=== PATIENT | male | born 1965 | race Caucasian/White ===

== ENCOUNTER 2019-08-22 14:29 | Outpatient (CLI) | payer BC, OTHER, SELFPAY ==
--- NOTE | 2019-08-22 14:48 | ECHO_ITS ---
Patient Info Name: Basilio Hurtado Age: 54 years : 1965 Gender: Male Ht: 74 in Wt: 250 lbs BSA: 2.46 m2 HR: 75 bpm BP: 155 / 84 mmHg Technical Quality: Good Exam Date: 08/22/2019 2:57 PM Exam Location: [facility] Patient Status: Outpatient Admit Date: 08/22/2019 Staff Ordering Physician: Elizabeth Chand PAC Sinter Feeder: Saniya Mustafa RDCS Attending Provider: Elizabeth Chand PAC Referring Physician: Mannie VENTURA; Exam Type: CA echo doppler color flow Study Info Indications - cardiac arrhythmia Complete two-dimensional, color flow and Doppler transthoracic echocardiogram is performed. Summary 1. Left ventricular chamber dimension is normal. 2. Left ventricular systolic function is normal, estimated at 55-60%. 3. The left ventricular diastolic function is grade I diastolic dysfunction. 4. E/e' 14 is mildly elevated. 5. Left atrial chamber dimension is mildly enlarged. 6. Right atrial chamber dimension is mildly enlarged. 7. The mitral valve has mildly calcified annulus. 8. There is trace mitral valve regurgitation. 9. There is trace tricuspid valve regurgitation. 10. No pulmonary hypertension, estimated pulmonary arterial systolic pressure is 25 mmHg. Left Ventricle E/e' 14 is mildly elevated. Left ventricular chamber dimension is normal. Left ventricular systolic function is normal, estimated at 55-60%. The left ventricular diastolic function is grade I diastolic dysfunction. Right Ventricle Right ventricular chamber dimension is normal. Right ventricular systolic function is normal. Left Atria Left atrial chamber dimension is mildly enlarged. Right Atria Right atrial chamber dimension is mildly enlarged. Aortic Valve The aortic valve is trileaflet. There is no aortic valve stenosis. There is no aortic valve regurgitation. Pulmonic Valve There is no pulmonic regurgitation. Mitral Valve The mitral valve has mildly calcified annulus. There is no mitral valve stenosis. There is trace mitral valve regurgitation. Tricuspid Valve There is trace tricuspid valve regurgitation. No pulmonary hypertension, estimated pulmonary arterial systolic pressure is 25 mmHg. Pericardium/Pleural There is no pericardial effusion. Inferior Vena Cava Normal inferior vena cava with >50% collapse upon inspiration consistent with normal right atrial pressure, 5 mmHg. Aorta The aortic root size at the sinus of Valsalva is normal. Left Ventricular Outflow Tract Name Value Normal LVOT 2D LVOT Diameter 2.1 cm LVOT Doppler LVOT Peak Gradient 7 mmHg LVOT Mean Gradient 4 mmHg LVOT VTI 25 cm LVOT VTI/AV VTI Ratio 0.9 LVOT Stroke Volume 84 ml LVOT CO 20.8 l/min LVOT CI 8.4 l/min/m2 Pulmonic Valve Name Value Normal
== END 2019-08-22 14:30 | disposition home or self-care (01) ==
PROVIDERS: PCP Family Medicine; Visit Provider Physician Assistant Medical
DX: I49.9 Cardiac arrhythmia, unspecified (principal); I51.7 Cardiomegaly
CPT/HCPCS: 93306

== ENCOUNTER → 2020-05-12 08:50 | Outpatient (CLI) | payer BC, OTHER, SELFPAY ==
--- NOTE | ~2020-05-12 | XR_ITS ---
XR knee LT 2V 05/12/2020 09:16 Indication: Left knee pain Procedure: 2 views left knee Comparison: 11/01/2007 Findings: There is mild tricompartment osteoarthritis. Small effusion. No fracture or traumatic malal ignment. No foreign bodies. Impression: 1: Mild tricompartment osteoarthritis of the left knee. 2: Small left knee effusion. Reviewed, dictated and finalized at location B. 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 2: Small left knee effusion.
== END ==
PROVIDERS: PCP Family Medicine; Visit Provider Physician Assistant Medical
DX: M17.12 Unilateral primary osteoarthritis, left knee (principal); M25.462 Effusion, left knee
CPT/HCPCS: 73560

== ENCOUNTER → 2020-05-15 11:00 | Outpatient (CLI) | payer BC, OTHER, SELFPAY ==
--- NOTE | ~2020-05-15 | MR_ITS ---
EXAMINATION: MR knee LT wo con DATE: 05/15/2020 12:42 INDICATION: Generalized left knee pain TECHNIQUE: Magnetic resonance imaging (MRI) of the left knee was performed without intravenous contra st. Sequences included coronal PD-weighted FSE, coronal PD-weighted FS FSE, sagittal T2-weighted FSE , sagittal PD-weighted FS FSE and axial PD weighted fat saturated FSE. COMPARISON: Left knee radiographs dated 05/12/2020 FINDINGS: Medial compartment: Complex medial meniscal tear with a primary longitudinal horizontal tear plane at the posterior horn extending to contact the superior articular surface at the junction of the inner to mid thirds and wi th secondary likely parrot beak configuration tear along the inner third of the posterior horn. Deep chondral ulceration without degenerative subchondral changes at the anterior to central weightbearing medial femoral condyle. Partial thickness chondral fissuring at the central aspect of the medial tib ial plateau. Lateral compartment: Lateral meniscus is normal. Small region of partial-thickness chondral ulceration without degenerativ e subchondral changes at the anterior weightbearing lateral femoral condyle. Patellofemoral compartment: Deep chondral ulceration with underlying subarticular cystic change and edema at the patellar apical ridge, inferomedial aspect of the medial patellar facet and at the medial trochlea and inferior aspec t of the trochlear groove. Partial-thickness chondral fissuring involving up to 50% of the cartilage thickness at the lateral patellar facet and at the medial half of the lateral trochlea. Ligaments and tendons: Anterior and posterior cruciate ligaments are normal. Partial-thickness tear involving the anterior a spect of the proximal medial collateral ligament. This is likely chronic with secondary heterotopic o ssification at its medial epicondylar origin. The fibular collateral ligament is normal. All tendinop athy without discrete tear at the distal quadriceps and proximal patellar tendons. The visualized med ial and lateral hamstring tendons as well as the iliotibial band are normal. Fluid: Moderate-sized left knee joint effusion. No loose osteochondral bodies identified. Large Velarde's cyst measuring 7.8 x 2.1 x 4.0 cm. There is edema extending inferiorly from the Velarde's cyst along the burch perficial aspect of the medial head of the gastrocnemius muscle. Osseous/other: Bone alignment is normal. No fracture or pathologic marrow replacing process. IMPRESSION: 1. Complex tear of the posterior horn of the medial meniscus. 2. Mild tricompartmental osteoarthritis with high-grade patellofemoral and moderate grade chondral ma lacia in the medial and lateral compartments. 3. Chronic partial tear of the medial collateral ligament. 4. Moderate left knee joint effusion and large Velarde's cyst. Reviewed, dictated and finalized at location A. IMPRESSION: 1. Complex tear of the posterior horn of the medial meniscus. 2. Mild tricompartmental osteoarthritis with high-grade patellofemoral and mode rate grade chondral malacia in the medial and lateral compartments. 3. Chronic partial tear of the medial collateral ligament. 4. Moderate left knee joint effusion and large Velarde's cyst.
== END ==
PROVIDERS: PCP Family Medicine; Visit Provider Physician Assistant Medical
DX: S83.232A Complex tear of medial meniscus, current injury, left knee, initial encounter (principal); S83.412A Sprain of medial collateral ligament of left knee, initial encounter; M17.12 Unilateral primary osteoarthritis, left knee; M71.22 Synovial cyst of popliteal space [Baker], left knee
CPT/HCPCS: 73721

== ENCOUNTER → 2022-03-21 09:11 | Outpatient (CLI) | payer BC, OTHER, SELFPAY ==
--- NOTE | ~2022-03-21 | XR_ITS ---
EXAMINATION: XR chest 2V DATE: 03/21/2022 09:44 INDICATION: Cough TECHNIQUE: PA and lateral views of the chest are obtained. COMPARISON: None available FINDINGS: There are minimal airspace opacities of the right lung base. No pleural effusion or pneumot horax. The cardiomediastinal silhouette is normal. There is mild thoracic spondylosis. IMPRESSION: 1. Minimal right basilar airspace opacity, consistent with atelectasis versus pneumonia. Reviewed, dictated and finalized at location A. IMPRESSION: 1. Minimal right basilar airspace opacity, consistent with atelectasis versus p neumonia.
== END ==
PROVIDERS: PCP Family Medicine; Visit Provider Nurse Practitioner Family
DX: R05.9 Cough, unspecified (principal); M47.814 Spondylosis without myelopathy or radiculopathy, thoracic region
CPT/HCPCS: 71046

== ENCOUNTER 2023-04-26 00:59 | Day surgery (SDC) | payer BC, OTHER, SELFPAY ==
[2023-04-20 10:16] VITALS: BMI 30.6
--- NOTE | 2023-04-24 10:18 | SUR.PREOP ---
Patient called regarding upcoming procedure. Reviewed preop instructions, appointment times, and procedure prep.
[2023-04-26 06:20] VITALS: BP 124/85; PULSE 64; RESP 16; TEMP 36.1; O2SAT 100
[2023-04-26] MEDS: LACTATED RINGERS 1,000 ML 150 ML IV CONT (06:28)
--- NOTE | 2023-04-26 07:15 | P.HP_ITS ---
History of Present Illness History of Present Illness Consent: Risks, benefits, and alternatives have been discussed and questions answered. Patient agrees to proceed with procedure. Chief complaint: neoplasm screening Narrative: Basilio Hurtado is a 57 year old male Presents for screening colonoscopy. Patient's current weight appetite and bowel movements are normal. Patient denies abdominal pain. He has had no bleeding. Family history noncontributory. Review of Systems Review of Systems: Review of systems noncontributory. [facility] Past Medical History Medical History BMI 31.0-31.9,adult BMI 32.0-32.9,adult BMI greater than 30 Family History Family History Father No problems noted. Mother No problems noted. Sibling No problems noted. 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 Gender identity (if verbalized by the patient): Male Spiritual care concerns: No Meds Home Medications and Allergies Home Medications Medication Instructions Recorded Confirmed Type fluticasone propionate 50 2 spray intranasal DAILY #16 grams 02/05/23 04/26/23 Rx mcg/actuation nasal spray,suspension ezetimibe 10 mg tablet See Rx Instructions .Route 04/04/23 04/26/23 Rx .COMPLEX #90 tabs Allergies Allergy/AdvReac Type Severity Reaction Status Date / Time No Known Allergies Allergy Verified 04/26/23 06:19 Vital Signs Vital Signs - 24 hr 04/26/23 06:20 Temperature 96.9 F L Pulse Rate 64 Respiratory Rate 16 Blood Pressure 124/85 Pulse Oximetry 100 Oxygen Delivery Room Air Exam Narrative: Physical exam reveals patient to be alert. Vital signs stable. HEENT exam is unremarkable. Patient is anicteric. Lungs are clear to auscultation and percussion. Heart is without murmur or extra sounds. Abdomen bowel sounds are present soft nontender with no hepatosplenomegaly. Digital external rectal exam is normal. Assessment and Plan Assessment and plan (1) Screen for colon cancer: Code(s): Z12.11 - Encounter for screening for malignant neoplasm of colon Status: Acute Assessment and Plan: Patient presents today for neoplasia screening colonoscopy. He appears to be at average risk for colon polyps. Further recommendations may be given after endoscopy.
--- NOTE | 2023-04-26 07:19 | P.PNAN_ITS ---
Anes - Initial Pre Proc Eval Procedure: Operation Date: 04/26/23 07:30 Proposed Procedures p Screening Colonoscopy - Bj Looney MD Date/Time: 04/26/23 07:19 Surgeon: Bj Looney MD Pre Op Diagnosis: neoplasm screening Patient Data Age: 57 Gender: M Height: 1.91 m Weight: 108.6 kg Last Vital Signs Temp 96.9 F L 04/26/23 06:20 Pulse 64 04/26/23 06:20 Resp 16 04/26/23 06:20 BP 124/85 04/26/23 06:20 Pulse Ox 100 04/26/23 06:20 O2 Del Method Room Air 04/26/23 06:20 Allergies Allergy/AdvReac Type Severity Reaction Status Date / Time No Known Allergies Allergy Verified 04/26/23 06:19 Home Medications Medication Instructions Recorded Confirmed Type fluticasone propionate 50 2 spray intranasal DAILY #16 grams 02/05/23 04/26/23 Rx mcg/actuation nasal spray,suspension ezetimibe 10 mg tablet See Rx Instructions .Route 04/04/23 04/26/23 Rx .COMPLEX #90 tabs Patient hx anesthesia problems: none Family hx anesthesia problems: none Results Review: All pre-operative results and documents have been reviewed as part of the pre- operative evaluation. [facility] Past Medical History Medical History BMI 31.0-31.9,adult BMI 32.0-32.9,adult BMI greater than 30 Family History Family History Father No problems noted. Mother No problems noted. Sibling No problems noted. 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 Informed Consent: The patient's anesthetic plan and its attendant risks and benefits were discussed with the patient/family/POA. Questions were solicited and answers provided to the satisfaction of the patient/family/POA.
[2023-04-26 07:43] VITALS: BP 101/75; PULSE 74; RESP 21; O2SAT 100
[2023-04-26 07:53] VITALS: BP 121/84; PULSE 76; RESP 25; O2SAT 100
[2023-04-26 08:03] VITALS: BP 118/83; PULSE 67; RESP 20; O2SAT 100
== END 2023-04-26 08:07 | disposition home or self-care (01) ==
PROVIDERS: PCP Family Medicine; Visit Provider Internal Medicine Gastroenterology
PROC: 0DJD8ZZ Inspection of Lower Intestinal Tract, Via Natural or Artificial Opening Endoscopic (ICD-10-PCS; CPT 45378; principal; 2023-04-26 07:30)
DX: Z12.11 Encounter for screening for malignant neoplasm of colon (principal); K64.8 Other hemorrhoids; Z87.891 Personal history of nicotine dependence; F10.90 Alcohol use, unspecified, uncomplicated; Z79.899 Other long term (current) drug therapy; E66.9 Obesity, unspecified; Z68.29 Body mass index [BMI] 29.0-29.9, adult
CPT/HCPCS: 45378; J2704; J7120

== ENCOUNTER 2023-09-05 06:56 | Outpatient (CLI) | payer BC, OTHER, SELFPAY ==
--- NOTE | ~2023-09-05 | XR_ITS ---
XR sacroiliac joints min 3V 09/05/2023 07:34 Indication: Chronic sacroiliac joint pain Procedure: 3 view sacroiliac joints Comparison: No prior studies for comparison. Findings: There is mild symmetric bilateral degenerative change of the sacroiliac joints. No erosive changes. No ankylosis. Sacral foramen are symmetric. There is lower lumbar spondylosis partially visu alized. Mild osteoarthritis of the hips. Impression: 1: Mild bilateral symmetric degenerative change of the sacroiliac joints. Reviewed, dictated and finalized at location B. Impression: 1: Mild bilateral symmetric degenerative change of the sacroiliac joints.
--- NOTE | ~2023-09-05 | MR_ITS ---
EXAMINATION: MR lumbar spine wo con DATE: 09/05/2023 07:22 INDICATION: Low back pain. TECHNIQUE: Magnetic resonance imaging (MRI) of the lumbar spine was performed without intravenous con trast. Sequences included sagittal T2-weighted FSE, sagittal T2-weighted FS FSE, sagittal T1-weighted FSE, and axial T2-weighted FSE. COMPARISON: None FINDINGS: There is 3 mm retrolisthesis of L1 on L2 and L3 on L4. There is mild chronic anterior wedgi ng of T12 and L1 vertebral bodies. There is mildly decreased disc height at L1-L2 and L2-L3, moderate ly decreased disc height at L3-L4, mildly decreased disc height at L4-L5, and severely decreased disc height at L5-S1. The distal spinal cord signal intensity is normal. The conus medullaris is at T12. The following disc levels are specifically discussed: L1-L2: The disc is bulging. There is moderate right and severe left facet joint osteoarthritis. There is mild bilateral neural foraminal stenosis. There is mild central canal stenosis. L2-L3: The disc is bulging and has an annular fissure. There is moderate bilateral facet joint osteoa rthritis. There is mild bilateral neural foraminal stenosis. There is mild central canal stenosis. L3-L4: The disc is bulging and has an annular fissure. There is moderate bilateral facet joint osteoa rthritis. There is mild bilateral neural foraminal stenosis. There is mild central canal stenosis. L4-L5: The disc is bulging. There is moderate bilateral facet joint osteoarthritis. There is mild shine ateral neural foraminal stenosis. There is mild central canal stenosis. L5-S1: The disc is bulging and has an annular fissure. There is mild right and severe left facet join t osteoarthritis. There is mild bilateral neural foraminal stenosis. There is mild central canal sten osis. IMPRESSION: 1. Moderate lumbar spondylosis. Reviewed, dictated and finalized at location A.
== END 2023-09-05 06:57 ==
LOC: MICIMG 06:57
PROVIDERS: PCP Nurse Practitioner Family; Visit Provider Nurse Practitioner Family
DX: M53.3 Sacrococcygeal disorders, not elsewhere classified (principal); M43.06 Spondylolysis, lumbar region
CPT/HCPCS: 72148; 72202